=== PATIENT | female | born 1945 | race Caucasian/White ===

== ENCOUNTER → 2022-01-20 | Day surgery (SDC) | payer OTHER ==
[~2022-01-20] MED LIST: CLONIDINE HCL0.1 MG PO; GLIMEPIRIDE1 MG PO; HYDROCODON-ACE1 EAC2 PO; HYDROCODONE-ACET5 ML PO; LIPITOR TAB 2020 MG PO; LOSARTAN-HCTZ1 EAC1 PO; METFORMIN HCL1000 M1 PO; MULTI-VITAMIN1 EACH PO; NORVASC5 MG PO; PLAVIX75 MG PO; SYNTHROID75 MCG PO
[2022-01-20 08:35] LABS: HEMOGLOBIN 10.3 gm/dl (12.3-15.3); RED BLOOD COUNT 4.09 M/UL (4.00-5.10); WHITE BLOOD COUNT 15.1 K/UL (4.5-11.0)
[2022-01-20 09:10] LABS: BUN/CREATININE RATIO 17 (0-10)
== END | disposition home or self-care (01) ==
LOC: OR 01-15 13:00
PROVIDERS: Orthopaedic Surgery
DX: S42.411A Displaced simple supracondylar fracture without intercondylar fracture of right humerus, initial encounter for closed fracture (principal); I10 Essential (primary) hypertension; E11.9 Type 2 diabetes mellitus without complications; W19.XXXA Unspecified fall, initial encounter; Z88.8 Allergy status to other drugs, medicaments and biological substances; Z79.01 Long term (current) use of anticoagulants; Z95.1 Presence of aortocoronary bypass graft
CPT/HCPCS: 73070; 76000; 80048; 82962; 85027; 93005; C1713; J0690; J1100; J1170; J2001; J2250; J2704; J2710; J2795; J3010; J7120